=== PATIENT | male | born 1955 | race Hispanic/Latino ===

== ENCOUNTER → 2021-07-21 | Day surgery (SDC) | payer OTHER ==
[2021-07-17 08:03] LABS: BASOPHILS # (AUTO) 0.1 (0.0-0.1); BASOPHILS % 0.9 % (0.0-1.0); EOSINOPHILS # (AUTO) 0.2 (0.0-0.4); EOSINOPHILS % 2.7 % (0.0-6.0); HEMATOCRIT 40.3 % (38.2-49.6); HEMOGLOBIN 13.1 g/dL (14.0-18.0); LYMPHOCYTES # (AUTO) 3.6 (1.0-3.2); LYMPHOCYTES % 51.3 % (18.0-39.1); MEAN CORPUSCULAR HGB CONC 32.5 g/dL (31-35); MEAN CORPUSCULAR VOLUME 86.1 fL (81-99); MONOCYTES # (AUTO) 0.7 (0.2-0.8); MONOCYTES % 9.4 % (4.4-11.3); NEUTROPHILS # (AUTO) 2.5 (2.1-6.9); NEUTROPHILS % 35.4 % (38.7-80.0); PLATELET COUNT 186 x10e3/uL (140-360); RED BLOOD COUNT 4.68 x10e6/uL (4.3-5.7); RED CELL DISTRIBUTION WIDTH 13.4 % (11.7-14.4)
[~2021-07-21] MED LIST: BALANCED SALT SOLN (OPTH) 15 ML BTL IO ONE; BENICAR20 MG PO; LIDOCAINE 2% /EPINEPHRINE 20 ML SDV INJ ONE; LIPITOR10 MG PO; NEOMYCIN/POLYMYXIN/DEX (OPTH) 3.5 GM TUBE ONE; ONE DAILY COMP1 EACH PO; POVIDONE IODINE 5% (OPTH) 30 ML BTL ONE
[2021-07-21 15:50] VITALS: BP 142/90
== END | disposition home or self-care (01) ==
LOC: OR 10:51
PROVIDERS: ATTEND Ophthalmology
DX: H11.052 Peripheral pterygium, progressive, left eye (principal); I10 Essential (primary) hypertension; E78.5 Hyperlipidemia, unspecified; Z01.812 Encounter for preprocedural laboratory examination; Z20.822 Contact with and (suspected) exposure to COVID-19; Z79.899 Other long term (current) drug therapy
CPT/HCPCS: 36415; 65426; 85025; J2001; U0002; 88305